=== PATIENT | male | born 1965 | race Caucasian/White ===

== ENCOUNTER 2017-07-23 16:41 | Outpatient (CLI) | payer BC ==
--- NOTE | 2017-07-23 20:22 | RAD ---
CHEST TWO VIEWS 07/23/17 Comparison is made with the 09/07/13 study. The heart is normal in size and the lungs are clear. There is no infiltrate, effusion, or vascular co ngestion. Trachea is midline. IMPRESSION: No acute finding. POS: HOME
== END 2017-07-23 16:42 | disposition home or self-care (01) ==
LOC: BURRAD 16:41
PROVIDERS: ATTEND Nurse Practitioner Family
DX: R07.89 Other chest pain (principal)
CPT/HCPCS: 71046

== ENCOUNTER 2023-08-05 07:12 | Emergency (ER) | payer BC, OTHER ==
[2023-08-05] MEDS ORDERED: Aspirin Chewable 81 MG TAB ONE (07:22)
[2023-08-05] MEDS ORDERED: Famotidine/PF 20 mg/2ml Vial ONE (07:23)
[2023-08-05] MEDS ORDERED: Lidocaine 2% Viscous 100 ML BOTTLE ONE (07:23)
[2023-08-05] MEDS ORDERED: Mag-Al Plus 1200/1200/120 MG (30 mL) UDCUP ONE (07:23)
[2023-08-05] MEDS ORDERED: Lidocaine 2% PF 5 ML VIAL ONE ×2 (07:25→07:26)
[2023-08-05 07:32] LABS: #Basophils 0.1 thou/uL (0.0-0.2); #Eosinphils 0.1 thou/uL (0.0-0.7); #Lymphocytes 1.8 thou/uL (1.20-3.40); #Monocytes 0.5 thou/uL (0.11-0.59); #Neutrophils 4.5 thou/uL (1.40-6.50); %Basophils 0.7 % (0.0-1.0); %Eosinophils 1.8 % (0.0-10.0); %Lymphocytes 25.4 % (21.0-51.0); %Monocytes 7.3 % (0.0-10.0); %Neutrophils 64.7 % (42.0-75.0); Hematocrit 42.4 % (42.0-52.0); Hemoglobin 14.5 g/dL (14.0-18.0); Mean Corpuscular HGB CONC 34.2 g/dL (32.0-36.0); Mean Corpuscular Hemoglobin 28.9 pg (27.0-31.0); Mean Corpuscular Volume 84.5 fl (78.0-98.0); Mean Platelet Volume 7.6 fL (7.4-10.4); Platelet Count 217 10x3/uL (130-400); RBC Distribution Width 11.6 % (11.5-14.5); Red Blood Cell (RBC) Count 5.02 mill/uL (4.70-6.10); White Blood Cell (WBC) Count 6.9 10x3/uL (4.8-10.8)
[2023-08-05 07:44] LABS: ALT (SGPT) 23 U/L (8-55); AST (SGOT) 17 U/L (5-34); Albumin 3.9 g/dL (3.5-5.0); Alkaline Phosphatase 79 U/L (40-110); Anion Gap 12 mmol/L (10-20); BUN (Urea Nitrogen) 13 mg/dL (8.4-25.7); Bilirubin, Total 0.4 mg/dL (0.2-1.2); Calc. Creatinine Clearance 0 mL/min (70-130); Calcium 9.2 mg/dL (7.8-10.44); Carbon Dioxide 25 mmol/L (22-29); Chloride 109 mmol/L (98-107); Estimated GFR 86; Globulin 2.6 g/dL (2.4-3.5); Glucose 168 mg/dL (70-105); Potassium 4.4 mmol/L (3.5-5.1); Protein, Total 6.5 g/dL (6.0-8.3); Sodium 142 mmol/L (136-145)
[2023-08-05 07:47] LABS: Troponin I 0.017 ng/mL (< 0.028)
[2023-08-05] MEDS ORDERED: Acetaminophen 500 MG TAB ONE (08:01)
[2023-08-05 09:19] LABS: Troponin I Less than 0.010 ng/mL (< 0.028)
== END 2023-08-05 12:02 | disposition left against medical advice (07) ==
LOC: BURERS 07:12
DX: R07.2 Precordial pain (principal); I10 Essential (primary) hypertension; F17.210 Nicotine dependence, cigarettes, uncomplicated; Z79.82 Long term (current) use of aspirin
CPT/HCPCS: 36415; 71045; 80053; 84484; 85025; 93005; 96374; J2001; S0028